=== PATIENT | male | born 1940 ===

== ENCOUNTER 2025-04-14 15:28 | Outpatient (REF) | payer MEDICARE, SELFPAY ==
--- OUTSIDE RECORDS SUMMARY | 2025-04-14 18:52 | XMS_ITS | Clinical Summary ---
Author Organization [facility] Address [address] [place] [address] Care Team Providers Care Chief Nursing Executive Name Role Phone Edward Manuel PA-C Primary Care Provider [phone] Source Comments PLEASE NOTE, if this patient is a minor, it may be UNLAWFUL to discuss sensitive information that is contained in these records (such as FAMILY PLANNING, MENTAL HEALTH or SUBSTANCE ABUSE) with the minor patient's parent or other person without the patient's specific authorization.[facility] Allergies Active Allergy Reactions Criticality Noted Date Comments Penicillin 03/05/2025 Medications blood pressure kit med and lrgIndications:C ontrolled type 2 diabetes mellitus without complication, without long-term current use of insulin ([facility]),Primary hypertension Medium Adult dx htn ISRA[place] 99. 1 Kit 5 Active nitroglycerin (NITROSTAT) 0.[address] 1 Tablet under the tongue every 5 (five) minutes as needed for chest pain. 5 Active apixaban (ELIQUIS) 5 mg tabIndications:H eart disease,Primary hypertension Take 1 Tablet by mouth 2 (two) times daily. 180 Tablet 1 5 Active atorvastatin (LIPITOR) 40 mg tabletIndication s:Heart disease,Primary hypertension Take 1 Tablet by mouth once daily. 90 Tablet 1 5 Active carvediloL (COREG) 3.125 mg tabletIndication s:Heart disease,Primary hypertension Take 1 Tablet by mouth 2 (two) times daily with a meal. 180 Tablet 1 5 Active clopidogreL (PLAVIX) 75 mg tabletIndication s:Heart disease,Primary hypertension Take 1 Tablet by mouth once daily. 90 Tablet 1 5 Active empagliflozin (JARDIANCE) 10 mg tabIndications:H eart disease,Primary hypertension Take 1 Tablet by mouth once daily. 90 Tablet 1 5 Active ranolazine (RANEXA) 500 mg 12 hr tabletIndication s:Heart disease,Primary hypertension Take 1 Tablet by mouth every 12 (twelve) hours. 180 Tablet 1 5 Active sacubitriL-valsa rtan (ENTRESTO) 49-51 mg tabIndications:H eart disease,Primary hypertension Take 1 Tablet by mouth 2 (two) times daily. 180 Tablet 1 5 Active clotrimazole (LOTRIMIN) 1 % creamIndications :Tinea pedis of both feet Apply topically 2 (two) times daily. 15 g 1 5 Active clotrimazole (LOTRIMIN) 1 % creamIndications :Tinea pedis of both feet Apply topically 2 (two) times daily. 15 g 1 5 04/06/20 25 Discontin ued(Reord er (E-Cancel Not Sent)) Active Problems Problem Noted Date Diagnosed Date Congestive heart failure (CMS & HHS-HCC) 025 Primary hypertension 03/05/2025 Encounters Date Type Department Care Team Description 03/05/2025 9:00 AM EDT Office Visit [address] [address] Connor Watt, Jeffery 02/23/2025 Results Follow-Up [address] [address] Edward Manuel PA-C 02/20/2025 9:20 AM EDT Office Visit [address] [address] Edward Manuel PA-C 02/20/2025 Interim Notes [address] [address] Frances Reyes MA from Last 3 Months Immunizations Immunization Administration Dates Next Due TDAP 02/20/2025 ZOSTER VACCINE, RECOMBINANT (SHINGRIX) Family History Medical History Relation Name Comments Heart Disease Brother x1 Breast cancer Daughter 1 x1 Breast cancer Daughter 2 64 Colon Cancer Son x1 Lung Cancer Neg Prostate Cancer Neg Relation Name Status Comments Brother x1 Daughter 1 x1 Alive Daughter 2 64 Maternal Grandmother Son x1 Social History Tobacco Use Types Packs/Day Years Used Date Smoking Tobacco: Former Cigarettes 1 17 Passive Smoke Exposure: Never Smokeless Tobacco: Never Tobacco Cessation:Counseling Given: Yes Alcohol Use Standard Drinks/Week Comments Not Currently 0 (1 standard drink = 0.6 oz pur e alcohol) Social Connections Answer Date Recorded How often do you feel lonely or isolated from th ose around you? 1 02/20/2025 Financial Resource Strain Answer Date R ecorded Hard to pay for: Food 1 02/20/2025 Stress Answer Date Recorded Do you feel these kinds of stress these days? 1 02/20/2025 Food Insecurity Answer Date Recorded Hard to pay for: Food 1 02/20/2025 Transportation Needs Answer Date Record ed Hard to pay for: Transportation 1 02/20/2025 Utilities Answer Date Recorded Hard to pay for: Utilities 1 02/20 Sex and Gender Information Value Date Recorded Sex Assigned at Male 02/20/2025 6:35 AM PDT Legal Sex Male 10:07 AM PDT Gender Identity Male 02/20/2025 6:35 AM PDT Sexual Orientation Straight 02/20/2025 6: 35 AM PDT Last Filed Vital Signs Vital Sign Reading Time Taken Comments Blood Pressure 110/80 03/05/2025 9:22 AM EDT Pulse 61 03/05/2025 9:22 AM EDT Temperature 36.9 C (98.4 F) 03/05/2025 9:22 AM EDT Respiratory Rate 16 03/05/2025 9:22 AM EDT Oxygen Saturation 96% 03/05/2025 9:22 AM EDT Inhaled Oxygen Concentration - - Weight 93.7 kg (206 lb 9.6 oz) 03/05/2025 9:22 A M EDT Height 167.6 cm (5' 6 ) 03/05/2025 9:22 AM EDT Body Mass Index 33.35 03/05/2025 9:22 AM EDT Plan of Treatment Health Maintenance Due Date Last Done Comments Dental Examination 1940 Diabetes Foot Exam 1940 Urine Albumin Creatinine Ratio Screening 1940 Advanced Care Planning 1940 Retinopathy Screening 1953 Medicare Annual Wellness Visit 1958 Imm-Pneumococcal 50+ (1 of 2 - PCV) 1959 Falls Prevention 2005 Imm-RSV (adult) (1 - 1-dose 75+ series) 2015 [id number] (1 - season) 2025 Imm-Influenza (#1) 2025 Imm-Zoster, Recombinant (2 of 2) 04/17/2025 02/21/20 Hemoglobin A1c 08/23/2025 02/20/2025 Lipid Screening 02/20/2026 02/20/2025 Serum Creatinine 02/20/2026 02/20/2025 Tobacco Screening 03/05/2026 03/05/2025 Imm-DTaP/Tdap/Td (2 - Td or Tdap) 02/20/2035 025 Alcohol and Drug Screen Completed 02/20/2025 Depression Annual Screen Completed 02/20/2025 Procedures Procedure Name Priority Date/Time Associated Diagnosis Comments MEDICATIONS SCANNED DOCUMENT 02/25/2025 3:00 AM EDT HEMOGLOBIN GLYCOSYLATED A1C Routine 02/20/2025 11:05 AM EDT Glycosuria Hyperglycemia Controlled type 2 diabetes mellitus without complication, without long-term current use of insulin ([facility]) LIPID PANEL Routine 02/20/2025 11:05 AM EDT Heart disease COMPREHENSIVE METABOLIC PANEL Routine 02/20/2025 11:05 AM EDT Heart disease BLOOD COUNT COMPLETE AUTOMATED Routine 02/20/2025 11:05 AM EDT Heart disease GLUCOSE, BLOOD BY GLUCOSE MONITORING DEVICE (CLIA WAIVED)POCT Routine 02/20/2025 10:36 AM EDT Controlled type 2 diabetes mellitus without complication, without long-term current use of insulin ([facility]) URINE CULTURE W ID & SENS Routine 02/20/2025 10:13 AM EDT RFLX - REFLEXIVE URINE CULTURE Routine 02/20/2025 10:13 AM EDT Dysuria URINALYSIS, COMPLETE W/REFLEX TO CULTURE Routine 02/20/2025 10:13 AM EDT Foul smelling urine Dysuria URINALYSIS, MULTISTIX (POCT) Routine 02/20/2025 10:13 AM EDT Foul smelling urine Dysuria from Last 3 Months Results * MEDICATIONS SCANNED DOCUMENT (02/25/2025 3:00 AM EDT) 02/25/2025 3:00 AM EDT [facility] Provider Default SCAN MEDS OTHER ORDERS Fin al Result * BLOOD COUNT COMPLETE AUTOMATED Routine (02/20/2025 11:05 AM EDT) Pathologist [facility] WHITE BLOOD CELL COUNT 10.0 3.8 - 10.8 Thousand/ uL [facility] RED BLOOD CELL COUNT 5.34 4.20 - 5.80 Million/u L [facility] HEMOGLOBIN 15.9 13.2 - 17.1 g/dL [facility] HEMATOCRIT 49.3 38.5 - 50.0 % [facility] MCV 92.3 80.0 - 100.0 fL [facility] MCH 29.8 27.0 - 33.0 pg [facility] MCHC 32.3 32.0 - 36.0 g/dL [facility] Comment: For adults, a slight decrease in the calculated MCHC value (in the range of 30 to 32 g/dL) is most likely not clinically significant; however, it should be interpreted with caution in correlation with other red cell parameters and the patient's clinical condition. RDW 14.2 11.0 - 15.0 % [facility] PLATELET COUNT 290 140 - 400 Thousand/ uL [facility] MPV 10.3 7.5 - 12.5 fL [facility] Blood Blood / Unknown 02/20/2025 1 1:05 AM EDT 02/20/2025 11:06 AM EDT Narrative [employer] [facility] - 02/23/2025 3:39 AM EDT FASTING:YES SPECIMEN COLLECTED AT PROVIDER OFFICE. us Edward Manuel PA-C LAB - BLOOD DRAW Edited Resu lt - Final Performing Organization Address City/[facility]/ZIP Co de Phone Number [employer] [address] [address], [employer] [address] [address] * (ABNORMAL) HEMOGLOBIN GLYCOSYLATED A1C Routine (02/20/2025 11:05 AM EDT) HEMOGLOBIN A1C 6.4(H) <5.7 % [employer] [facility] Comment: For someone without known diabetes, a hemoglobin A1c value between 5.7% and 6.4% is consistent with prediabetes and should be confirmed with a follow-up test. For someone with known diabetes, a value <7% indicates that their diabetes is well controlled. A1c targets should be individualized based on duration of diabetes, age, comorbid conditions, and other considerations. This assay result is consistent with an increased risk of diabetes. Currently, no consensus exists regarding use of hemoglobin A1c for diagnosis of diabetes for children. Blood Blood / Unknown 02/20/2025 1 1:05 AM EDT 02/20/2025 11:06 AM EDT Narrative [employer] [facility] - 02/23/2025 3:39 AM EDT FASTING:YES SPECIMEN COLLECTED AT PROVIDER OFFICE. us Edward Manuel PA-C LAB - BLOOD DRAW Final Resul t Performing Organization Address [facility]/ZIP Co de Phone Number [employer] [address] [address], [employer] [address] [address] * LIPID PANEL Routine (02/20/2025 11:05 AM EDT) CHOLESTEROL, TOTAL 141 <200 mg/dL [employer] [facility] HDL CHOLESTEROL 56 > OR = 40 mg/dL [employer] [facility] TRIGLYCERIDES 132 <150 mg/dL [facility] LDL-CHOLESTEROL 63 99 mg/dL (calc) [facility] Comment: Reference range: <100 Desirable range <100 mg/dL for primary prevention; <70 mg/dL for patients with CHD or diabetic patients with > or = 2 CHD risk factors. LDL-C is now calculated using the Mariangel calculation, which is a validated novel method providing better accuracy than the Friedewald equation in the estimation of LDL-C. Ruben SS et al. SUSIE. 2013;310(12): 2863-1371 (http://education.Inkerwang/faq/JDW445) CHOL/HDLC RATIO 2.5 <5.0 (calc) [facility] NON-HDL CHOLESTEROL 85 <130 mg/dL (calc) [facility] Comment: For patients with diabetes plus 1 major ASCVD risk factor, treating to a non-HDL-C goal of <100 mg/dL (LDL-C of <70 mg/dL) is considered a therapeutic option. Blood Blood / Unknown 02/20/2025 1 1:05 AM EDT 02/20/2025 11:06 AM EDT Narrative [employer] - 02/23/2025 3:39 AM EDT FASTING:YES SPECIMEN COLLECTED AT PROVIDER OFFICE. us Edward Manuel PA-C LAB - BLOOD DRAW Final Resul t [employer] [address] [place] [id number], [employer] [address] [place] [phone] * COMPREHENSIVE METABOLIC PANEL Routine (02/20/2025 11:05 AM EDT) GLUCOSE 92 65 - 99 mg/dL [facility] Comment: Fasting reference interval UREA NITROGEN (BUN) 24 7 - 25 mg/dL [facility] CREATININE (blood) 1.06 0.70 - 1.22 mg/dL [facility] EGFR 69 > OR = 60 mL/min/1. 73m2 [facility] BUN/CREATININE RATIO SEE NOTE: [facility] Comment: Not Reported: BUN and Creatinine are within reference range. SODIUM 140 135 - 146 mmol/L [facility] POTASSIUM 4.7 3.5 - 5.3 mmol/L [employer] [facility] CHLORIDE 103 98 - 110 mmol/L [employer] [facility] CARBON DIOXIDE 31 20 - 32 mmol/L [employer] [facility] CALCIUM 9.6 8.6 - 10.3 mg/dL [employer] [facility] PROTEIN, TOTAL 6.6 6.1 - 8.1 g/dL [employer] [facility] ALBUMIN 4.2 3.6 - 5.1 g/dL [employer] [facility] GLOBULIN 2.4 1.9 - 3.7 g/dL (calc) [employer] [facility] ALBUMIN/GLOBULI N RATIO 1.8 1.0 - 2.5 (calc) [employer] [facility] BILIRUBIN, TOTAL 0.9 0.2 - 1.2 mg/dL [employer] [facility] ALKALINE PHOSPHATASE 75 35 - 144 U/L [employer] [facility] AST 16 10 - 35 U/L [employer] [facility] ALT 25 9 - 46 U/L [employer] [facility] Blood Blood / Unknown 02/20/2025 1 1:05 AM EDT 02/20/2025 11:06 AM EDT Narrative [employer] [facility] - 02/23/2025 3:39 AM EDT FASTING:YES SPECIMEN COLLECTED AT PROVIDER OFFICE. us Edward Manuel PA-C LAB - BLOOD DRAW Edited Resu lt - Final [employer] [address] [address], [employer] [address] [address] * GLUCOSE, BLOOD BY GLUCOSE MONITORING DEVICE (CLIA WAIVED)POCT Routine (02/20/2025 10:36 AM EDT) GLUCOSE 91 70 - 100 mg/dL [facility] OFF[facility] POCT Capillary Blood Blood / Unknown 10:36 AM EDT us Edward Manuel PA-C LAB - BLOOD DRAW Final Resul t [facility]- BACK OFFICE POCT * (ABNORMAL) URINALYSIS, MULTISTIX (POCT) Urine Routine (02/20/2025 10:13 AM EDT) URINE GLUCOSE 500 (++) NEGATIVE [facility] BACK OFFICE POCT URINE BILIRUBIN NEGATIVE NEGATIVE [facility]- BACK OFFICE POCT URINE KETONES NEGATIVE NEGATIVE [facility]- BACK OFFICE POCT URINE SPECIFIC GRAVITY 1.025 <=1.005 - >=1.030 [facility]- BACK OFFICE POCT URINE BLOOD MODERATE NON-HEMOLYZE D(A) NEGATIVE [facility] BACK OFFICE POCT URINE PH 6.0 5.0 - 8.5 [facility]- BACK OFF[facility] POCT URINE PROTEIN 30 (1+)(A) Negative [facility]- BACK OFF[facility] POCT URINE UROBILINOGEN 0.2 0.2 - 1.0 E.U./dL [facility]- BACK OFF[facility] POCT URINE NITRITE NEGATIVE NEGATIVE [facility]- BACK OFFICE POCT URINE LEUKOCYTES LARGE(A) NEGATIVE [facility]- BACK OFFICE POCT URINE COLOR DARK YELLOW STRAW, YELLOW [facility]- BACK OFFICE POCT ODOR URINE Abnormal(A) Normal [facility]- BACK OFFICE POCT CLARITY OF URINE CLOUDY(A) CLEAR [facility] BACK OFF[facility] POCT Urine Urine specimen / Unknown 02/20/2025 10:13 AM EDT Edward Manuel PA-C LAB URINE AMBULATORY Final R esult Performing Organization Address City/[facility]/ZIP Co de Phone Number [facility]- BACK OFFICE POCT * (ABNORMAL) URINE CULTURE W ID & SENS Routine (02/20/2025 10:13 AM EDT) CULTURE See Note(A) [employer] [facility] Comment: CULTURE, URINE, ROUTINE Micro Number: [id number] Test Status: Final Specimen Source: Urine Specimen Quality: Adequate Result: Greater than 100,000 CFU/mL of Zeenat tropicalis 02/20/2025 10:1 3 AM EDT 02/21/2025 8:02 AM EDT Edward Manuel PA-C LAB - MICROBIOLOGY AMBULATOR Y Final Result [employer] [facility] [address] [address], [employer] [facility] [address] [place] [address] * (ABNORMAL) URINALYSIS, COMPLETE W/REFLEX TO CULTURE Urine Routine (02/20/2025 10:13 AM EDT) COLOR YELLOW YELLOW [facility] APPEARANCE TURBID(A) CLEAR [facility] SPECIFIC GRAVITY 1.021 1.001 - 1.035 [facility] URINE PH 5.5 5.0 - 8.0 [facility] GLUCOSE 1+(A) NEGATIVE [facility] BILIRUBIN NEGATIVE NEGATIVE [facility] KETONES NEGATIVE NEGATIVE [facility] OCCULT BLOOD 2+(A) NEGATIVE [facility] URINE PROTEIN TRACE(A) NEGATIVE [facility] NITRITE NEGATIVE NEGATIVE [facility] LEUKOCYTE ESTERASE 3+(A) NEGATIVE [facility] URINE LEUKOCYTES > OR = 60(A) < OR = 5 [facility] RBC NONE SEEN < OR = 2 [facility] SQUAMOUS EPITHELIAL CELLS 0-5 < OR = 5 /HPF [facility] BACTERIA MANY(A) NONE SEEN [facility] HYALINE CAST NONE SEEN NONE SEEN [facility] YEAST MANY(A) NONE SEEN [facility] SEE NOTE See Below [facility] Comment: This urine was analyzed for the presence of WBC, RBC, bacteria, casts, and other formed elements. Only those elements seen were reported. Urine Urine specimen / Unknown 02/20/2025 10:13 AM EDT 02/21/2025 8:02 AM EDT us Edward Manuel PA-C LAB URINE AMBULATORY Edited Result - Final [facility] [facility] [address] [address], [facility] [address] [place] [address] * [facility] - REFLEXIVE URINE CULTURE Routine (02/20/2025 10:13 AM EDT) REFLEXIVE URINE CULTURE See Below [employer] Comment:CULTURE INDICATED - RESULTS TO FOLLOW 02/20/2025 10:1 3 AM EDT 02/21/2025 8:02 AM EDT Edward Manuel PA-C LAB - MICROBIOLOGY AMBULATOR Y Edited Result - Final [facility] [address] [address], [facility] [address] [place] [address] from Last 3 Months Insurance [facility] Care Teams Chief Nursing Executive Relationship Specialty Start Date End Date Edward Manuel PA-C [address] [place] [address] PCP - General [facility] 02/05/25
== END 2025-04-14 15:29 | disposition home or self-care (01) ==
LOC: HO.SH 15:28
PROVIDERS: Visit Provider Physician Assistant Medical
DX: Z01.118 Encounter for examination of ears and hearing with other abnormal findings (principal); H90.3 Sensorineural hearing loss, bilateral
CPT/HCPCS: 92557

== ENCOUNTER 2025-05-14 15:46 | Outpatient (AMB) | payer MEDICARE, SELFPAY ==
--- NOTE | 2025-05-14 15:51 | A.OFFVIS_ITS ---
Intake Visit Reasons: BPH w/LUTS Intake Note: Patient is present for BPH W/LUTS Urology Medication:FINASTERIDE,TAMSULOSIN Antibiotic Allergy:NONE Blood Thinner:APIXABAN TODAY'S PVR:19ML'S Emergency Room Tech Required: No Emergency Room Tech Services: Emergency Room Tech Present Emergency Room Tech Name: Samra [id number] Allergies No Known Allergies Allergy (Verified 05/14/25 20:50) Medication List - Last Reconciled 05/14/25 by HAILEY Alvarez- apixaban (Eliquis) 5 mg PO BID carvedilol mg PO empagliflozin (Jardiance) 10 mg PO DAILY finasteride 5 mg PO DAILY metformin 1,000 mg PO DAILY ranolazine ER 500 mg PO Q12H sacubitril-valsartan 49-51 mg tabs PO spironolactone 25 mg PO DAILY tamsulosin 0.4 mg PO DAILY HPI Comments Details: Rob is a 84-year-old to be [place]alese-speaking male patient of Dr. Manuel who was accompanied by his daughter at today's office visit. He has a past medical history of diabetes, hypertension, enlarged prostate, and recurrent urinary tract infections. In discussion with the patient and his daughter today he reports having followed up with his PCP for ongoing dysuria he has been experiencing. He reports he was treated for multiple urinary tract infections with his PCP however most recently was admitted to [facility] for over a week and was diagnosed with a urinary tract infections with potential sepsis. He reports he was discharged with a PICC line to his right upper extremity and has been receiving IV antibiotic therapy and is due to complete course this 05/16. He denies ever following up with Urology in the past however he is on Flomax and finasteride. He does report compliance with his medications. In review of medical records that were faxed over from PCP it appears urine culture noted yeast. In office urinalysis results reviewed with the patient today 1+ leukocytes otherwise within normal limits. In assessment of the patient today the penis is uncircumcised. Upon retraction of penile foreskin it does appear patient has balanitis otherwise no lesions or masses noted. No phimosis noted. PVR 19 mL. He currently denies any UTI like symptoms however he does report baseline UTI symptoms are typically dysuria. We did discuss at length potential causes of recurrent urinary tract infections as well as further treatment options and risks and benefits of these treatment options. MARU was offered however deferred. We did discussed obtaining retroperitoneal ultrasound and PSA for further assessment evaluation. He does report a longstanding history of constipation. We did discussed the importance of management and diabetes in relation to lower urinary tract symptoms as well as overall health and well- being. He currently denies urinary urgency, urinary frequency, incontinence, nocturia, hematuria, dysuria, foul smelling urine, changes to urinary stream, flank pain, fever, and or chills. All questions were answered. He otherwise offers no other issues or concerns at this time. Review of Systems Const All systems reviewed & are unremarkable except as noted in HPI and below Physical Exam Const General: cooperative, comfortable, no acute distress, well developed, alert and awake Orientation/consciousness: patient oriented x3 Limitations: language barrier HEENT Head: Yes normal to inspection, Yes normocephalic and Yes atraumatic Ears: hearing grossly normal bilaterally Eyes General: appearance normal, both eyes and all related structures Neck Neck: Yes normal visual inspection and Yes trachea midline Chest Chest palpation & inspection: normal inspection of the chest Resp Effort & Inspection: normal respiratory effort and able to speak in complete sentences Cardio Rate: regular rate GI Inspection: Yes normal to inspection Other: as per HPI General: Yes no CVA tenderness Back/Spine/Pelvis Back: no CVA tenderness Skin General skin exam: no rashes or lesions noted Neuro General: patient oriented x3 Extrem General: Yes normal to inspection Psych Appearance: grossly normal and well kempt Mental Status: mental status grossly normal Speech and movement: Normal speech and movement present and Clear speech present Affect: normal affect Attitude: cooperative Thought process: Normal thought process present Thought content: Normal thought content present Insight: Fair insight present (Psych) Judgement: Fair judgement present (Psych) Office Procedures Post Void Residual Post Residual Void Post Void Residual (PVR): 19 [id number] Void Residual by ultrasound Results AMB Urinalysis, Automated UA Leukoctes 15 Padmini/uL Last Edit by MANJEET Burrows on 05/14/25 16:26 UA Nitrite Negative Last Edit by MANJEET Burrows on 05/14/25 16:26 UA Urobilinogen 0.2 mg/dL Last Edit by MANJEET Burrows on 05/14/25 16:2 6 UA Protein 0 mg/dL Last Edit by MANJEET Burrows on 05/14/25 16:26 UA pH 6.0 Last Edit by MANJEET Burrows on 05/14/25 16:26 UA Blood 0 Meño/uL Last Edit by MANJEET Burrows on 05/14/25 16:26 UA Specific Eudora 1.015 Last Edit by MANJEET Burrows on 05/14/25 16: 26 UA Ketone Negative Last Edit by MANJEET Burrows on 05/14/25 16:26 UA Bilirubin 0 mg/dL Last Edit by MANJEET Burrows on 05/14/25 16: UA Glucose 0 mg/dL Last Edit by MANJEET Burrows on 05/14/25 16:26 Results Reviewed Results Reviewed: Laboratory Last Values Urine pH (Auto) 6.0 05/14/25 16:25 Specific Eudora (Auto) 1.015 05/14/25 16:25 Urine Protein (Auto) 0 mg/dL 05/14/25 16:25 Glucose (UA)(Auto) 0 mg/dL 05/14/25 16:25 Urine Ketones (Auto) Negative 05/14/25 16:25 Urine Blood (Auto) 0 Meño/uL 05/14/25 16:25 Urine Nitrite (Auto) Negative 05/14/25 16:25 Urine Bilirubin (Auto) 0 mg/dL 05/14/25 16:25 Urine Urobilinogen (Auto) 0.2 mg/dL 05/14/25 16:25 Leukocyte Esterase (Auto) 15 Padmini/uL 05/14/25 16:25 Assessment & Plan Assessment & Plan (1) Recurrent UTI: Code(s): N39.0 - Urinary tract infection, site not specified Category: Medical (2) Balanitis: Code(s): N48.1 - Balanitis Category: Medical Plan In office urinalysis results reviewed with the patient today; as noted above. PVR 19 mL. Continue Flomax and finasteride. We discussed signing medical release form to obtain previous hospitalization records for continuity of care. Will obtain retroperitoneal ultrasound for further assessment evaluation. Will obtain PSA and A1c for further assessment evaluation. We discussed balanitis Start clotrimazole/betamethasone as discussed and prescribed. We discussed potential causes of recurrent urinary tract infections as well as further treatment options and risks and benefits of these treatment options. All questions were answered Follow-up in 1-3 months with imaging and labs; or sooner with any issues, concerns, and or questions. Orders: Orders AMB Urinalysis Automated Today Z13.9 - Encounter for screening, unspecified US retroperitoneal comp Today N39.0 - Urinary tract infection, site not specified Prostate Specific Antigen Today N39.0 - Urinary tract infection, site not specified Hemoglobin A1c Today E11.9 - Type 2 diabetes mellitus without complications Medications: New clotrimazole-betamethasone 1-0.05 % Apply thin coat 2 times per day 1 appl topical BID 45 grams 0RF 4 weeks N48.1 - Balanitis Patient Instructions: The patient had an opportunity to ask questions regarding the treatment plan. All questions were answered. Physical exam, labs, and imaging were discussed and reviewed in detail. As well as risks, benefits, and discussion of treatment choices. No major barriers to understanding were identified. The patient expressed understanding and agreement with the above treatment plan. The patient was made aware they should contact our office by phone for worsening of their current condition, the appearance of new symptoms, or with any questions or concerns. Compliance is encouraged with any medications and follow up testing that is ordered. It is a privilege to be allowed the opportunity to participate in? your urological care.? Again, if you have any questions or concerns If you have any questions or concerns please do not hesitate to contact me. The office is [phone]. This note is constructed using voice recognition software. While every effort has been made to ensure accuracy camp maintenance supervisor errors may have been included. Yours sincerely, ELGIN Alvarez Coding Level of Care Code New Pt Level 4 (96410) Diagnoses Recurrent UTI N39.0 Balanitis N48.1 CPT Codes Post Residual Void - PVR CPT Code: 11177-Phxp Void Residual by ultrasound ([id number])
--- OUTSIDE RECORDS SUMMARY | 2025-05-14 19:28 | XMS_ITS | Encounter Summary ---
Author Organization [facility] Address [address] [place] [address] Care Team Providers Care Grade Foreman Name Role Phone Physician, No Pcp Primary Care Provider Unavaila ble Encounter Details Date Type Department Care Team (Late st Contact Info) Description 05/05/2025 Telephone [facility] [address] [facility] [address] [place] [phone] Noy Brandon MD [address], [place] [id number] Social History Tobacco Use Types Packs/Day Years Used Date Smoking Tobacco: Former Cigarettes Q uit: 2010 Smokeless Tobacco: Former Comments:Quit in 1978 Alcohol Use Standard Drinks/Week Comments Not Currently 0 (1 standard drink = 0.6 oz pur e alcohol) Quit in 1999 Housing Instability Answer Date Recorde d Are you worried that in the next 2 months you may not have stable housing? No 05/01/2025 Food Access & Nutrition Answer Date Rec orded Do you have access to a vari ety of food including fruits and vegetables? Yes 05/01/2025 Access to Healthcare Answer Date Record ed Within the last 3 months, ho julisa many times did you visit the emergency department for your medical care? 0 05/01/2025 Health Literacy Answer Date Recorded How often do you need to hav e someone help you when you read instructions, pamphlets, or other written material from your doctor or pharmacy? Patient declined 05/01/2025 Caregiver: How often do you need to have someone help you when you read instructions, pamphlets, or other written material from your doctor or pharmacy? Not on file 025 Financial Risk Answer Date Recorded How hard is it for you to pa y for the very basics like food, housing, medical care, and air conditioning / heating? Patient declined 05/01/2025 Transportation Answer Date Recorded Has the lack of transportati on kept you from meetings, work, or from getting things needed for daily living? Patient declined 05/01/2025 Has the lack of transportati on kept you from medical appointments or from getting medications? Patient declined 05/01/2025 Social Isolation Answer Date Recorded How often do you feel lonely or isolated from those around you? Patient declined 05/01/2025 Food Risk Answer Date Recorded Within the past 12 months we worried whether our food would run out before we got money to buy more. Patient declined 025 Within the past 12 months th e food we bought just didn't last and we didn't have money to get more. Patient declined 09/2024 Dependent Care Answer Date Recorded Do you need help finding or paying for care for your loved ones. For example, children's entertainer or elderly care for an older adult? Patient declined 05/01/2025 Education Answer Date Recorded Do you think completing more education or training, like finishing a GED, going to college, or learning a trade, would be helpful for you? Patient declined 05/01/2025 Employment and Income Answer Date Recor ded During the last four weeks, have you been actively looking for work? Patient declined 05/01/2025 Living Situation Answer Date Recorded What is your living situation? Unrecognized valu e 05/01/2025 Interpersonal Safety Answer Date Record ed Physical Abuse Unrecognized value 05/01/2025 Verbal Abuse Unrecognized value 05/01/2025 Sex and Gender Information Value Date Recorded Sex Assigned at Not on file Legal Sex Male 10:04 AM EDT Gender Identity Not on file Sexual Orientation Choose not to disclose 2024 2:28 PM EDT documented as of this encounter Functional Status * Are you deaf or do you have serious difficulty hearing? Answer Date of Assessment Author No 04/30/2025 11:58 PM EDT Melissa Pierre RN * Are you blind or do you have serious difficulty seeing, even when wearing glasses? Answer Date of Assessment Author No 04/30/2025 11:58 PM EDT Melissa Pierre RN * Do you have serious difficulty walking or climbing stairs? Answer Date of Assessment Author No 04/30/2025 11:58 PM EDT Melissa Pierre RN * Do you have serious difficulty dressing or bathing? Answer Date of Assessment Author No 04/30/2025 11:58 PM EDT Melissa Pierre RN * Because of a physical, mental, or emotional condition, do you have serious difficulty doing errandsalone such as visiting the doctor? Answer Date of Assessment Author No 04/30/2025 11:58 PM EDT Melissa Pierre RN documented as of this encounter Mental Status * Because of a physical, mental, or emotional condition, do you have serious difficulty concentrating, remembering, or making decisions? (5 years old or older) Answer Entry Date Author No 04/30/2025 11:58 PM EDT Melissa Pierre RN documented in this encounter Progress Notes * Yoly Dean - 05/11/2025 2:48 PM EDT Spoke with the patients daughter Verenice and scheduled for 06/05/25 with Kaylie Pan. * Noy Brandon MD - 05/05/2025 9:05 AM EDT Patient seen in consult by Dr. Hodges initially with known history of HFrEF. 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 Follow-up posthospitalization will be with Dr. Hodges or Blue (FYI to them only) 1 month postdischarge. Patient is still in the hospital however getting treated for noncardiac issues. Would keep an eye on his discharge and book 1 month follow-up post. documented in this encounter Plan of Treatment Upcoming Encounters Date Type Department Care Team (Late st Contact Info) Description 06/05/2025 12:40 PM EST Office Visit [facility] - [address] [place] [phone] Kaylie Pan NP [address] [place] [phone] documented as of this encounter Visit Diagnoses Not on filedocumented in this encounter Additional Health Concerns Infection Onset Date Last Indicated Resolved Time Enterovirus 04/30/2025 04/30/2025 Rhinovirus 04/30/2025 04/30/2025 documented as of this encounter Care Teams Grade Foreman Relationship Specialty Start Date End Date Physician, No Pcp PCP - General 04/21/25 documented as of this encounter
--- OUTSIDE RECORDS SUMMARY | 2025-05-14 19:28 | XMS_ITS | Clinical Summary ---
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 Systolic Volume (BP) 155(A) 21 - 61 mL CV PACS IVSD 1.2(A) 0.6 - 1.0 cm CV PACS LVIDD 6.1(A) 4.2 - 5.8 cm CV PACS LVIDS 4.9(A) 2.5 - 4.0 cm CV PACS LVOT Diameter 2.1 cm CV PACS LVOT Mean Joaquin 0.9 m/s CV PACS LVOT Mean Grad 4 mmHg CV PACS LVOT Peak VTI 26.0 cm CV PACS LVOT Peak Joaquin 1.4 m/s CV PACS LVOT Peak Gradient 8 mmHg CV PACS LVPWD 1.2(A) 0.6 - 1.0 cm CV PACS MV E' Tissue Velocity Lateral 8 cm/s CV PACS MV E' Tissue Velocity Septal 4 cm/s CV PACS Ejection Fraction (A2C) 26 % CV PACS Ejection Fraction (A4C) 30 % CV PACS Ejection Fraction (BP) 31 % CV PACS LVOT Area 3.5 cm2 CV PACS LVOT Stroke Volume 90 mL CV PACS Left Atrium Minor [place] 6.5 cm CV PACS Left Atrium Major [place] 5.8 cm CV PACS LA Area Sys (A2C) 28 cm2 CV PACS LA Area Sys (A4C) 26 cm2 CV PACS LA Volume (BP) 101 mL CV PACS RA Area 19.1 cm2 CV PACS RA 2D Volume 55 mL CV PACS AV Mean Gradient 7 mmHg CV PACS Ao VTI 35.2 cm CV PACS AV Peak Joaquin 1.9 m/s CV PACS AV Peak Gradient 14 mmHg CV PACS AV Area Continuity Equation 2.6 cm2 CV PACS AV Area Peak Velocity 2.6 cm2 CV PACS Aortic Sinus Valsalva 3.7 cm CV PACS Ascending Aorta 4.4 cm CV PACS IVC Proximal 1.5 cm CV PACS MV Deceleration Camp 1.9 m/s2 CV PACS E Wave Deceleration Time 331(A) 119 - 242 ms CV PACS MV PHT 97 ms CV PACS MV Peak A Joaquin 1.24 m/s CV PACS MV Peak E Joaquin 0.62 m/s CV PACS MV Area PHT 2.3 cm2 CV PACS PV Acceleration Time 85 ms CV PACS PV Acceleration Time 85 ms CV PACS RV Diastolic Basal Dimension 3.6 2.5 - 4.1 cm CV PACS RV S' 14 cm/s CV PACS TAPSE 27 mm CV PACS LV ESV Index (A4C) 87 mL/m2 CV PACS LV EDV Index (A4C) 124 mL/m2 CV PACS E/E' Ratio Septal 16 CV PACS E/E' Ratio Averaged 12 CV PACS LVOT Stroke Index 46 mL/m2 CV PACS Relative Wall Thickness ratio 0.39 CV PACS LVOT:AV VTI Index 0.74 CV PACS FS 20 % CV PACS LV Mass 2D 323 g CV PACS Ascending Aorta Index 2.26 cm/m2 CV PACS LVOT flow 312 mL/s CV PACS RA 2D Volume Index 28 mL/m2 CV PACS EZEKIEL Index (VTI) 1.31 cm2/m2 CV PACS EZEKIEL Index (Pk Joaquin) 1.33 cm2/m2 CV PACS LVIDD Index 3.13 cm/m2 CV PACS LVIDS Index 2.51 cm/m2 CV PACS AV Velocity Ratio 0.74 CV PACS E/A Ratio 0.5 CV PACS E/E' Ratio Lateral 8 CV PACS LV Systolic Volume Index (BP) 79 mL/m2 CV PACS LV Diastolic Volume Index (BP) 116 mL/m2 CV PACS LA Volume Index (BP) 52 mL/m2 CV PACS LV Mass Index 2D 165 g/m2 CV PACS LV EDV Index (A2C) 91 mL/m2 CV PACS LV ESV Index (A2C) 67 mL/m2 CV PACS BSA 2.02 m2 CV PACS Est. RA Pressure 3 mmHg CV PACS Anatomical Region Laterality Modality Ultrasound Narrative 05/01/2025 11:08 AM EDT Left ventricle cavity is dilated. There is mild hypertrophy. Systolic function is severely decreased with an ejection fraction of 20-25%. Severe global LV hypokinesis is present. There is Grade I (mild) diastolic dysfunction. Right ventricle cavity is normal. Right ventricular systolic function is normal. No hemodynamically significant valvular disease. 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 No prior study for comparison. Left Ventricle Left ventricle cavity is dilated. There is mild hypertrophy. Systolic function is severely decreased with an ejection fraction of 20-25%. Severe global LV hypokinesis is present. There is Grade I (mild) diastolic dysfunction. Right Ventricle Right ventricle cavity appears normal. Systolic function is normal. Left Atrium Left atrium volume index is severely increased. Right Atrium Right atrium cavity is normal. IVC/SVC Inferior vena cava was not well visualized. RA pressures is estimated to be 3 mmHg (IVC diameter <21 mm and decreases >50% during inspiration). Mitral Valve The leaflets are mildly thickened. There is mild annular calcification. There is trace regurgitation. There is no evidence of mitral valve stenosis. Tricuspid Valve The leaflets exhibit normal excursion. There is trace regurgitation. Cannot assess RVSP. Aortic Valve The aortic valve is trileaflet. The leaflets are moderately thickened. The leaflets are mildly calcified. There is mild regurgitation. There is no evidence of aortic valve stenosis. Pulmonic Valve The pulmonic valve was not well visualized. There is trace pulmonic valve regurgitation. There is no evidence of pulmonic valve stenosis. Ascending Aorta The Sinus of Valsalva is (3.7 cm). The ascending aorta is (4.4 cm). Pericardium There is an fat pad. Study Details Overall the study quality was technically difficult. Definity contrast was given to enhance imaging. Study was difficult due to: poor endocardial visualization. us Esha Brothers NP CV ECHO PROCEDURES Final Result * (ABNORMAL) RBC morphology review (05/01/2025 8:24 AM EDT) Rbc Morphology See comment( A) Consistent with indices, Normal for [place] LAB HEMETOLOGY METHOD 05/01/2025 8:58 AM EDT [facility] Comment:RBC: Morphology agre es with CBC Platelet Morphology - WAM See Note(A) Normal LAB HEMETOLOGY METHOD 05/01/2025 8:58 AM EDT [facility] Comment:PLT: Normal Blood Venous blood specimen / Unknown Venipuncture / Unknown 05/01/2025 8:24 AM EDT 05/01/2025 8:28 AM EDT us Esha Brothers NP LAB BLOOD ORDERABLES Final Resul t [facility] [address] [place] [address], [place] [phone] * Light blue tube (05/01/2025 5:15 AM EDT) Extra Tube Hold for add-ons. 05/01/2025 7:01 AM EDT [facility] Comment:Auto resulted. Blood Venous blood specimen / Unknown Venipuncture / Unknown 05/01/2025 5:15 AM EDT 05/01/2025 5:29 AM EDT Maksim Miller MD LAB BLOOD ORDERABLES F inal Result Performing Organization Address [facility]/ZIP Co de Phone Number [facility] [address] [place] [address], [place] [phone] * Activated Partial Thromboplastin Time - STAT (05/01/2025 5:15 AM EDT) aPTT 32.3 24.1 - 39.3 sec LAB COAGULATION METHOD 05/01/2025 5:42 AM EDT [facility] Blood Venous blood specimen / Unknown Venipuncture / Unknown 05/01/2025 5:15 AM EDT 05/01/2025 5:27 AM EDT Nirav Sylvester MD LAB BLOOD ORDERABLES Final R esult [facility] [address] [place] [address], [place] [phone] * (ABNORMAL) Prothrombin Time with INR - STAT (05/01/2025 5:15 AM EDT) Protime 15.4(H) 10.6 - 13.9 sec LAB COAGULATION METHOD 05/01/2025 5:42 AM EDT [facility] INR 1.2 LAB COAGULATION METHOD 05/01/2025 5:42 AM EDT [facility] Blood Venous blood specimen / Unknown Venipuncture / Unknown 05/01/2025 5:15 AM EDT 05/01/2025 5:27 AM EDT us Nirav Sylvester MD LAB BLOOD ORDERABLES Final R esult [facility] [address] [place] [address], [place] [phone] * RI CRITICAL CARE 30-74 MINUTES (05/01/2025 3:35 AM EDT) Nirav Rodriguez MD - 05/01/2025 3:35 AM EDT Nirav Sylvester MD 05/01/2025 4:02 AM Critical Care Performed by: Nirav Sylvester MD Authorized by: Nirav Sylvester MD Critical care provider statement: Critical care time (minutes): 36 Total face to face critical care time (minutes): 20 Critical care time was exclusive of: Separately billable procedures and treating other patients Critical care was necessary to treat or prevent imminent or life-threatening deterioration of the following conditions: Cardiac failure, circulatory failure and shock Critical care was time spent personally by me on the following activities: Development of treatment plan with patient or surrogate, discussions with consultants, evaluation of patient's response to treatment, ordering and review of laboratory studies, ordering and review of radiographic studies, re-evaluation of patient's condition, review of old charts, ordering and performing treatments and interventions and examination of patient Face to face critical care was time spent personally by me on the following activities: Evaluation of patient's response to treatment, development of treatment plan with patient or surrogate, re-evaluation of patient's condition and examination of patient I assumed direction of critical care for this patient from another provider in my specialty: no Care discussed with: admitting provider Comments: NSTEMI requiring heparin drip and discussion with cardiology us Nirav Sylvester MD IN CLINIC/BEDSIDE ORDERABLES Final Result * ECG 12 lead (05/01/2025 1:47 AM EDT) Only the most recent of5 resultswithin the time period is included. Ventricular Rate ECG 75 BPM GEMUSE Atrial Rate 75 BPM GEMUSE P-R Interval 166 ms GEMUSE QRS Duration 170 ms GEMUSE Q-T Interval 476 ms GEMUSE QTc 531 ms GEMUSE P Wave [place] 15 degrees GEMUSE R [place] 15 degrees GEMUSE T [place] 139 degrees GEMUSE ECG Interpretation Normal sinus rhythm Left bundle branch block Abnormal ECG When compared with ECG of 30-APR-2025 21:27, (unconfirmed ) QRS duration has increased Confirmed by MARISELA SCOTT ([id number]) on 05/02/2025 10:58:43 AM GEMUSE 05/01/2025 1:47 AM EDT 05/02/2025 10:58 AM EDT us Nirav Sylvester MD ECG ORDERABLES Final Result Performing Organization Address [facility] Co de Phone Number GEMUSE * (ABNORMAL) Troponin I high sensitivity (05/01/2025 1:47 AM EDT) Only the most recent of6 resultswithin the time period is included. [facility] High Sensitivity Troponin I 119(HH) <=79 ng/L LAB CHEMISTRY METHOD 05/01/2025 3:11 AM EDT [facility] Blood Venous blood specimen / Unknown Venipuncture / Unknown 05/01/2025 1:47 AM EDT 05/01/2025 1:52 AM EDT Narrative [facility] - 05/01/2025 3:11 AM EDT High levels of biotin in samples may falsely decrease hsTroponin values. Use caution when interpreting hsTroponin results in patients taking biotin who exhibit renal impairment (eGFR <60) or in patients taking more than 20 mg/day of biotin. us Nirav Sylvester MD LAB BLOOD ORDERABLES Final R esult Performing Organization Address [facility]/ZIP Co de Phone Number [facility] [address] [place] [address], [place] [phone] * Lactate, with Reflex (04/30/2025 10:56 PM EDT) Pathologist [facility] LACTIC ACID 1.0 0.4 - 2.0 mmol/L LAB CHEMISTRY METHOD 04/30/2025 11:24 PM EDT [facility] Blood Venous blood specimen / Unknown Venipuncture / Unknown 04/30/2025 10:56 PM EDT 04/30/2025 11:00 PM EDT Nirav Sylvester MD LAB BLOOD ORDERABLES Final R esult Performing Organization Address City/[facility]/ZIP Co de Phone Number [facility] [address] [place] [address], [place] [phone] * (ABNORMAL) Blood culture pathogens molecular study (04/30/2025 10:56 PM EDT) [facility] Zeenat tropicalis Detected (A) Not Detected LAB MICROBIOLOGY METHOD 05/02/2025 8:26 AM EDT [facility] Blood Venous blood specimen / Unknown Venipuncture / Unknown 04/30/2025 10:56 PM EDT 04/30/2025 11:00 PM EDT Nirav Sylvester MD LAB MICROBIOLOGY - GENERAL O RDERABLES Final Result Performing Organization Address [facility]/ZIP Co de Phone Number [facility] [address] [place] [address], [place] [phone] * CT Abdomen Pelvis w Contrast (04/30/2025 9:55 PM EDT) Only the most recent of2 resultswithin the time period is included. Anatomical Region Laterality Modality Body Computed Tomogra phy 04/30/2025 10:4 1 PM EDT Impressions 04/30/2025 10:41 PM EDT 1. No acute disease. No CT evidence of acute pancreatitis. 2. Small hiatal hernia. 3. Splenomegaly is again noted. 4. No evidence of a bowel obstruction or free air. No pericolonic inflammation. No evidence of appendicitis. 5. Enlarged prostate gland is again noted. 6. Additional findings are detailed above. This document has been electronically signed by: Rogers Alonso M.D. on 04/30/2025 22:41:36 Narrative 04/30/2025 10:41 PM EDT INDICATION: Abdominal pain, nausea, vomiting, elevated lipase CT ABDOMEN AND PELVIS WITH CONTRAST COMPARISON: 04/21/2025. FINDINGS: CTA chest will be reported separately. Examination is mildly limited due to motion/streak artifact. A few subcentimeter low-attenuation lesions are noted within the liver which are too small to characterize. Liver is otherwise unremarkable. Gallbladder is absent. A small hiatal hernia is noted. The stomach is significantly underdistended which precludes accurate assessment. No CT evidence of acute pancreatitis. A nonspecific 1.9 cm low-attenuation lesion in the spleen is again noted which does not appear to be significantly changed. Spleen is enlarged and measures 15.9 cm on coronal image 88. Adrenal glands are unremarkable. Subcentimeter low-attenuation lesions are noted within the left kidney which are too small to characterize. Both kidneys are otherwise unremarkable. No hydronephrosis or obstructing stone. Small diverticulum is again noted arising from the left lateral aspect of the urinary bladder. Enlarged prostate gland is again noted, estimated to measure approximately 5.9 x 5.3 cm on axial image 158. This does not appear to be significantly changed in size by my measurements compared to the previous examination. Atherosclerotic plaque is noted in the abdominal aorta. No evidence of an abdominal aortic aneurysm or dissection. No evidence of a bowel obstruction. No free air. No pericolonic inflammation. The appendix is visualized, and there is no evidence of acute appendicitis. No lymphadenopathy or loculated fluid collection. Metallic fragments are again noted and and adjacent to the right iliac bone, this has been noted previously. Bone windows demonstrate no acute abnormalities. Degenerative changes are again noted within the hips and visualized spine. Procedure Note Rogers Alonso MD - 04/30/2025 INDICATION: Abdominal pain, nausea, vomiting, elevated lipase CT ABDOMEN AND PELVIS WITH CONTRAST COMPARISON: 04/21/2025. FINDINGS: CTA chest will be reported separately. Examination is mildly limited due to motion/streak artifact. A few subcentimeterlow-attenuation lesions are noted within the liver which are too small to characterize. Liver is otherwise unremarkable. Gallbladder is absent. A small hiatal hernia is noted. The stomach is significantly underdistended which precludes accurate assessment. No CT evidence of acute pancreatitis. A nonspecific 1.9 cm low-attenuation lesion in the spleen is again noted which does not appear to be significantly changed. Spleen is enlargedand measures 15.9 cm on coronal image 88. Adrenal glands are unremarkable. Subcentimeter low-attenuation lesions are noted within the left kidney which are too small to characterize. Both kidneys are otherwise unremarkable. No hydronephrosis or obstructing stone. Small diverticulum is again noted arising from the left lateral aspect of the urinary bladder. Enlarged prostate gland is again noted, estimated to measure approximately 5.9 x 5.3 cm on axial image 158. This does not appear sung significantly changed in size by my measurements compared to theprevious examination. Atherosclerotic plaque is noted in the abdominal aorta. No evidence ofan abdominal aortic aneurysm or dissection. No evidence of a bowel obstruction. No free air. No pericolonic inflammation. The appendix is visualized, and there is no evidence of acute appendicitis. No lymphadenopathy or loculated fluid collection. Metallic fragments are again noted and and adjacent to the right iliac bone, this has beennoted previously. Bone windows demonstrate no acute abnormalities.Degenerative changes are again noted within the hips and visualized spine. IMPRESSION: 1. No acute disease. No CT evidence of acute pancreatitis. 2. Small hiatal hernia. 3. Splenomegaly is again noted. 4. No evidence of a bowel obstruction or free air. No pericolonic inflammation. No evidence of appendicitis. 5. Enlarged prostate gland is again noted. 6. Additional findings are detailed above. This document has been electronically signed by: Rogers Alonso M.D. on 04/30/2025 22:41:36 Chuck Sandhu MD [facility] [place]ED[place] Final Result * CT Angio Chest wo and/or w Contrast (04/30/2025 9:55 PM EDT) Anatomical Region Laterality Modality Body Computed Tomogra phy 04/30/2025 10:5 1 PM EDT Impressions 04/30/2025 10:51 PM EDT 1. Limited exam due to motion/streak artifact. No definite pulmonary embolism. 2. 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 No evidence of a rupture. No definite dissection. Outpatient follow-up is advised. 3. Cardiomegaly. 4. No acute infiltrate or pleural effusion. 5. A 6-7 mm pulmonary nodule is noted in the right lower lobe. A 4 mm left upper lobe pulmonary nodule is noted. This can be followed up according to the revised Fleischner criteria. 6. Additional findings are detailed above. This document has been electronically signed by: Rogers Alonso M.D. on 04/30/2025 22:51:19 Narrative 04/30/2025 10:51 PM EDT INDICATION: Chest pain, dyspnea, hx of prior DVT. Eval for PE vs PNA CTA CHEST WITH CONTRAST AND 3D POST PROCESSING COMPARISON: None provided. FINDINGS: Sagittal and coronal MIP 3D reconstruction images were performed. CT abdomen/pelvis will be reported separately. Examination is limited due to motion/streak artifact. No definitive evidence of a pulmonary embolism. Cardiomegaly is present. Thoracic aorta is partially obscured by motion/streak artifact. There is mild aneurysmal dilatation of the ascending thoracic aorta, estimated to measure 4.1 cm in transverse dimension on axial image 235. Descending thoracic aorta is mildly aneurysmal measuring 3.5 cm in transverse dimension on axial image 319. No evidence of a rupture. No definite dissection. No evidence of a pneumothorax or pneumomediastinum. No focal infiltrate or consolidation. Dependent ground-glass changes are noted in the bilateral lungs. There is minimal atelectatic/fibrotic change in the left lower lung. Noncalcified nodule in the right lower lobe measures 6-7 mm on axial image 273 of series 2. Noncalcified nodule in the left upper lobe measures 4 mm on axial image 132. No pleural effusion. No lymphadenopathy. Small hiatal hernia is present. Bone windows demonstrate no acute abnormalities. There are multilevel degenerative changes within the thoracic spine. Procedure Note Rogers Alonso MD - 04/30/2025 INDICATION: Chest pain, dyspnea, hx of prior DVT. Eval for PE vs PNA CTA CHEST WITH CONTRAST AND 3D POST PROCESSING COMPARISON: None provided. FINDINGS: Sagittal and coronal MIP 3D reconstruction images were performed. CT abdomen/pelvis will be reported separately. Examination is limited due to motion/streak artifact. No definitive evidence of a pulmonary embolism. Cardiomegaly is present. Thoracic aorta is partially obscured by motion/streak artifact. There is mild aneurysmal dilatationof the ascending thoracic aorta, estimated to measure 4.1 cm in transverse dimension on axial image 235. Descending thoracic aorta is mildly aneurysmal measuring 3.5 cm in transverse dimension on axial image 319.No evidence of a rupture. No definite dissection. No evidence of a pneumothorax or pneumomediastinum. No focal infiltrateor consolidation. Dependent ground-glass changes are noted in the bilateral lungs. There is minimal atelectatic/fibrotic change in the left lower lung. Noncalcified nodule in the right lower lobe measures 6-7 mm onaxial image 273 of series 2. Noncalcified nodule in the left upper lobemeasures 4 mm on axial image 132. No pleural effusion. No lymphadenopathy. Small hiatal hernia is present. Bone windows demonstrate no acute abnormalities. There are multilevel degenerative changes within the thoracic spine. IMPRESSION: 1. Limited exam due to motion/streak artifact. No definite pulmonary embolism. 2. 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 No evidence of a rupture. No definite dissection. Outpatient follow-up is advised. 3. Cardiomegaly. 4. No acute infiltrate or pleural effusion. 5. A 6-7 mm pulmonary nodule is noted in the right lower lobe. A 4 mmleft upper lobe pulmonary nodule is noted. This can be followed up accordingto the revised Fleischner criteria. 6. Additional findings are detailed above. This document has been electronically signed by: Rogers Alonso M.D. on 04/30/2025 22:51:19 Chuck Sandhu MD [facility] [place] Final Result * (ABNORMAL) Urinalysis with reflex microscopic (04/30/2025 9:49 PM EDT) Only the most recent of2 resultswithin the time period is included. Specific [place] Urine 1.023 1.003 - 1.030 LAB URINALYSIS - AUTOMATED METHOD 04/30/2025 10:27 PM EDT [facility] pH, Urine 7.5 5.0 - 8.0 pH LAB URINALYSIS - AUTOMATED METHOD 04/30/2025 10:27 PM [facility] Leukocytes, Urine Large(A) Negative LAB URINALYSIS - AUTOMATED METHOD 04/30/2025 10:27 PM [facility] Nitrite, Urine Negative Negative LAB URINALYSIS - AUTOMATED METHOD 04/30/2025 10:27 PM [facility] Protein, Urine Trace <=Trace mg/dL LAB URINALYSIS - AUTOMATED METHOD 04/30/2025 10:27 PM [facility] Glucose, Urine >=1000(A) Negative mg/dL LAB URINALYSIS - AUTOMATED METHOD 04/30/2025 10:27 PM [facility] Ketones, Urine Negative Negative mg/dL LAB URINALYSIS - AUTOMATED METHOD 04/30/2025 10:27 PM [facility] Urobilinogen , Urine 1.0 0.2 - 1.0 mg/dL LAB URINALYSIS - AUTOMATED METHOD 04/30/2025 10:27 PM [facility] Bilirubin, Urine Negative Negative LAB URINALYSIS - AUTOMATED METHOD 04/30/2025 10:27 PM [facility] Blood, Urine Small(A) Negative LAB URINALYSIS - AUTOMATED METHOD 04/30/2025 10:27 PM [facility] RBC, Urine 11.8(H) 0 - 4 /HPF LAB URINALYSIS - AUTOMATED METHOD 04/30/2025 10:27 PM [facility] WBC, Urine 663.5(H) 0 - 4 /HPF LAB URINALYSIS - AUTOMATED METHOD 04/30/2025 10:27 PM [facility] Squamous Epithelial, Urine 21 0 - 60 /LPF LAB URINALYSIS - AUTOMATED METHOD 04/30/2025 10:27 PM [facility] Bacteria, Urine Few(A) Negative /HPF LAB URINALYSIS - AUTOMATED METHOD 04/30/2025 10:27 PM [facility] Hyaline Casts, Urine 8.4(H) 0 - 3 /LPF LAB URINALYSIS - AUTOMATED METHOD 04/30/2025 10:27 PM EDT [facility] Urine Urine specimen obtained by clean catch procedure / Unknown Non-blood Collection / Unknown 04/30/2025 9:49 PM EDT 04/30/2025 10:06 PM EDT Chuck Sandhu MD LAB URINE ORDERABLES Final Resul t [facility] [address] [place] [address], [place] [phone] * XR Chest 2 Views (04/30/2025 8:47 PM EDT) Only the most recent of2 resultswithin the time period is included. Anatomical Region Laterality Modality Body Radiographic Angela ging 04/30/2025 10:5 4 PM EDT Impressions 04/30/2025 10:54 PM EDT 1. No acute disease. 2. Cardiomegaly. This document has been electronically signed by: Rogers Alonso M.D. on 04/30/2025 22:54:54 Narrative 04/30/2025 10:54 PM EDT INDICATION: chest pain CHEST X-RAY FRONTAL AND LATERAL VIEWS COMPARISON: 04/21/2025. FINDINGS: Frontal and lateral views of the chest were performed. Cardiomegaly is present. No acute infiltrate or pleural effusion. No pneumothorax. Kyphotic deformity of the thoracic spine is noted. Procedure Note Rogers Alonso MD - 04/30/2025 INDICATION: chest pain CHEST X-RAY FRONTAL AND LATERAL VIEWS COMPARISON: 04/21/2025. FINDINGS: Frontal and lateral views of the chest were performed. Cardiomegaly is present. No acute infiltrate or pleural effusion. No pneumothorax. Kyphotic deformity of the thoracic spine is noted. IMPRESSION: 1. No acute disease. 2. Cardiomegaly. This document has been electronically signed by: Rogers Alonso M.D. on 04/30/2025 22:54:54 Chuck Sandhu MD IMG XR PROCEDURES Final Result * (ABNORMAL) Respiratory virus panel molecular study (04/30/2025 8:22 PM EDT) Pathologist [facility] Adenovirus Detection by PCR Not Detected Not Detected LAB MICROBIOLOGY METHOD 05/01/2025 6:03 AM EDT [facility] Influenza A PCR Not Detected Not Detected LAB MICROBIOLOGY METHOD 05/01/2025 6:03 AM EDT [facility] Influenza B PCR Not Detected Not Detected LAB MICROBIOLOGY METHOD 05/01/2025 6:03 AM EDT [facility] Coronavirus 229E Not Detected Not Detected LAB MICROBIOLOGY METHOD 05/01/2025 6:03 AM EDT [facility] Coronavirus HKU1 Not Detected Not Detected LAB MICROBIOLOGY METHOD 05/01/2025 6:03 AM EDT [facility] Coronavirus OC43 Not Detected Not Detected LAB MICROBIOLOGY METHOD 05/01/2025 6:03 AM EDT [facility] Coronavirus NL63 Not Detected Not Detected LAB MICROBIOLOGY METHOD 05/01/2025 6:03 AM EDT [facility] Parainfluenza Virus 1 Not Detected Not Detected LAB MICROBIOLOGY METHOD 05/01/2025 6:03 AM EDT [facility] Parainfluenza Virus 2 Not Detected Not Detected LAB MICROBIOLOGY METHOD 05/01/2025 6:03 AM EDT [facility] Parainfluenza Virus 3 Not Detected Not Detected LAB MICROBIOLOGY METHOD 05/01/2025 6:03 AM EDT [facility] Parainfluenza Virus 4 Not Detected Not Detected LAB MICROBIOLOGY METHOD 05/01/2025 6:03 AM EDT [facility] RSV PCR Not Detected Not Detected LAB MICROBIOLOGY METHOD 05/01/2025 6:03 AM EDT [facility] Human Metapneumovirus A and B Not Detected Not Detected LAB MICROBIOLOGY METHOD 05/01/2025 6:03 AM EDT [facility] Rhinovirus/Entero virus Detected(A ) Not Detected LAB MICROBIOLOGY METHOD 05/01/2025 6:03 AM EDT [facility] Bordetella pertussis Not Detected Not Detected LAB MICROBIOLOGY METHOD 05/01/2025 6:03 AM EDT [facility] Bordetella parapertussis Not Detected Not Detected LAB MICROBIOLOGY METHOD 05/01/2025 6:03 AM EDT [facility] Mycoplasma pneumo by PCR Not Detected Not Detected LAB MICROBIOLOGY METHOD 05/01/2025 6:03 AM EDT [facility] Chlamydia pneumoniae Not Detected Not Detected LAB MICROBIOLOGY METHOD 05/01/2025 6:03 AM EDT [facility] SARS COV-2 Not Detected Not Detected LAB MICROBIOLOGY METHOD 05/01/2025 6:03 AM EDT [facility] Swab Both anterior nares / Unknown Non-blood Collection / Unknown 04/30/2025 8:22 PM EDT 04/30/2025 8:27 PM EDT Narrative [facility] - 05/01/2025 6:03 AM EDT Testing was performed using the [employer] Respiratory Pathogen PCR Assay. All results must be correlated with the clinical findings. Results should not be used as the sole basis for diagnosis. False Negative results may occur from the presence of sequence variants in the region targeted by the assay or the presence of inhibitors. Results may be affected by concurrent antiviral/antimicrobial therapy or levels of organisms that are below the limit of detection. us Maksim Miller MD LAB MICROBIOLOGY - GEN ERAL ORDERABLES Final Result [facility] [address] [place] [address], * [id number], RSV, Influenza A and B qualitative RT-PCR (04/30/2025 8:22 PM EDT) Only the most recent of2 resultswithin the time period is included. [facility] Influenza A PCR Not Detected Not Detected LAB MICROBIOLOGY METHOD 04/30/2025 9:12 PM EDT [facility] Influenza B PCR Not Detected Not Detected LAB MICROBIOLOGY METHOD 04/30/2025 9:12 PM EDT [facility] RSV PCR Not Detected Not Detected LAB MICROBIOLOGY METHOD 04/30/2025 9:12 PM EDT [facility] SARS COV-2 Not Detected Not Detected LAB MICROBIOLOGY METHOD 04/30/2025 9:12 PM EDT [facility] Swab Both anterior nares / Unknown Non-blood Collection / Unknown 04/30/2025 8:22 PM EDT 04/30/2025 8:27 PM EDT us Chuck Sandhu MD LAB MICROBIOLOGY - GENERAL ORDER [place] Final Result Performing Organization Address City/[facility]/ZIP Co de Phone Number [facility] [address] [place] [address], [place] [phone] * (ABNORMAL) Lipase (04/30/2025 7:59 PM EDT) Only the most recent of2 resultswithin the time period is included. [facility] Lipase 77(H) 13 - 75 unit/L LAB CHEMISTRY METHOD 04/30/2025 8:55 PM EDT [facility] Blood Venous blood specimen / Unknown Venipuncture / Unknown 04/30/2025 7:59 PM EDT 04/30/2025 8:27 PM EDT us Chuck Sandhu MD LAB BLOOD ORDERABLES Final Resul t Performing Organization Address City/[facility]/ZIP Co de Phone Number [facility] [address] [place] [address], [place] [phone] * (ABNORMAL) Comprehensive metabolic panel (04/30/2025 7:59 PM EDT) [facility] Sodium 139 133 - 145 mmol/L LAB CHEMISTRY METHOD 04/30/2025 8:55 PM [facility] Potassium 4.0 3.5 - 5.5 mmol/L LAB CHEMISTRY METHOD 04/30/2025 8:55 PM [facility] Chloride 105 96 - 110 mmol/L LAB CHEMISTRY METHOD 04/30/2025 8:55 PM [facility] CO2 30 21 - 32 mmol/L LAB CHEMISTRY METHOD 04/30/2025 8:55 PM [facility] Anion Gap 4 3 - 11 LAB CHEMISTRY METHOD 04/30/2025 8:55 PM [facility] Glucose 162(H) 70 - 100 mg/dL LAB CHEMISTRY METHOD 04/30/2025 8:55 PM [facility] BUN 14 5 - 25 mg/dL LAB CHEMISTRY METHOD 04/30/2025 8:55 PM [facility] Creatinine 1.06 0.70 - 1.30 mg/dL LAB CHEMISTRY METHOD 04/30/2025 8:55 PM [facility] eGFR 69 >=60 mL/min/1. 73m2 LAB CHEMISTRY METHOD 04/30/2025 8:55 PM [facility] Comment:Calculation based on the Chronic Kidney Disease Epidemiology Collaboration (CKD-EPI) equation refit without adjustment for race. BUN/Creatinine Ratio 13.2 LAB CHEMISTRY METHOD 04/30/2025 8:55 PM [facility] Calcium 8.7 8.5 - 10.5 mg/dL LAB CHEMISTRY METHOD 04/30/2025 8:55 PM [facility] AST (SGOT) 23 10 - 42 unit/L LAB CHEMISTRY METHOD 04/30/2025 8:55 PM [facility] ALT (SGPT) 41 10 - 60 unit/L LAB CHEMISTRY METHOD 04/30/2025 8:55 PM [facility] Alkaline Phosphatase 121 42 - 121 unit/L LAB CHEMISTRY METHOD 04/30/2025 8:55 PM EDT [facility] Total Protein 6.4 6.0 - 8.0 g/dL LAB CHEMISTRY METHOD 04/30/2025 8:55 PM EDT [facility] Albumin 3.3 3.2 - 5.0 g/dL LAB CHEMISTRY METHOD 04/30/2025 8:55 PM EDT [facility] Total Bilirubin 0.7 0.0 - 1.4 mg/dL LAB CHEMISTRY METHOD 04/30/2025 8:55 PM EDT [facility] Blood Venous blood specimen / Unknown Venipuncture / Unknown 04/30/2025 7:59 PM EDT 04/30/2025 8:27 PM EDT Chuck Sandhu MD LAB BLOOD ORDERABLES Final Resul t [facility] [address] [place] [address], * (ABNORMAL) Complete blood count (04/22/2025 6:09 AM EDT) WBC 8.3 4.8 - 10.8 K/mcL LAB HEMETOLOGY METHOD 04/22/2025 7:03 AM [facility] RBC 4.70 4.50 - 5.50 M/mcL LAB HEMETOLOGY METHOD 04/22/2025 7:[facility] Hemoglobin 13.5 13.5 - 17.5 g/dL LAB HEMETOLOGY METHOD 04/22/2025 7:03 AM [facility] Hematocrit 41.0(L) 42.0 - 54.0 % LAB HEMETOLOGY METHOD 04/22/2025 7:03 AM [facility] MCV 87.4 79.0 - 98.0 FL LAB HEMETOLOGY METHOD 04/22/2025 7:03 AM [facility] MCH 28.8 27.0 - 32.0 pcg LAB HEMETOLOGY METHOD 04/22/2025 7:03 AM EDT [facility] MCHC 32.9 32.0 - 37.0 g/dL LAB HEMETOLOGY METHOD 04/22/2025 7:03 AM EDT [facility] RDW 14.5 11.0 - 15.0 % LAB HEMETOLOGY METHOD 04/22/2025 7:03 AM EDT [facility] Platelets 178 130 - 400 K/mcL LAB HEMETOLOGY METHOD 04/22/2025 7:03 AM EDT [facility] MPV 10.8 7.0 - 11.0 FL LAB HEMETOLOGY METHOD 04/22/2025 7:03 AM EDT [facility] NRBC 0.0 <1.0 % LAB HEMETOLOGY METHOD 04/22/2025 7:03 AM EDT [facility] NRBC Absolute 0.00 <0.10 K/mcL LAB HEMETOLOGY METHOD 04/22/2025 7:03 AM T [facility] Blood Venous blood specimen / Unknown Venipuncture / Unknown 04/22/2025 6:09 AM EDT 04/22/2025 6:26 AM EDT us Eliana Davis MD LAB BLOOD ORDERABLES Final Res ult [facility] [address] [place] [address], * Hemoglobin A1c (04/22/2025 6:09 AM EDT) Hemoglobin A1C 6.3 <6.5 % LAB CHEMISTRY METHOD 04/22/2025 12:17 PM EDT [facility] Mean Bld Glu Estim. 134 mg/dL LAB CHEMISTRY METHOD 04/22/2025 12:17 PM EDT [facility] Blood Venous blood specimen / Unknown Venipuncture / Unknown 04/22/2025 6:09 AM EDT 04/22/2025 6:26 AM EDT Yue LORENZO LAB BLOOD ORDERABLES Final Resu lt [facility] [address] [place] [address], * CT Head wo Contrast (04/21/2025 2:16 PM EDT) Anatomical Region Laterality Modality Head and Neck Computed Tomogra phy 04/21/2025 2:22 PM EDT Impressions 04/21/2025 2:25 PM EDT Impression: 1. No acute hemorrhage or intracranial mass effect. 2. Moderate, nonspecific deep white matter changes compatible with chronic microvascular ischemia in a patient of this age. Teleaayush LORENZO ([id number]) -------- FINAL REPORT -------- Dictated By: Reema Moreira Dictated Date: 04/21/2025 14:22 ET Assigned Physician: Reema Moreira Reviewed and Electronically Signed By: Reema Moreira Signed Date: 04/21/2025 14:25 ET Workstation ID: [id number] Transcribed By: Self Edit Transcribed Date: 04/21/2025 14:22 ET Narrative 04/21/2025 2:25 PM EDT History: Altered mental status. Comparison: No comparison imaging at this institution. Technique: Contiguous axial images were obtained at 2.5 mm intervals through the posterior fossa and at 5 mm intervals through the remainder of the brain without intravenous contrast. DLP: 1873.05 mGy/cm [employer] Iterative reconstruction technique Findings: Moderate generalized cerebral volume loss is probably within normal limits for the stated age. Pierson-white differentiation is maintained. Patchy deep white matter hypodensity is seen bilaterally, unaccompanied by mass effect or hemorrhage. No abnormal intra- or extra-axial masses or fluid collections are seen. There is no evidence of acute intracranial hemorrhage. There is mild mucoperiosteal thickening within the partially imaged paranasal sinuses, consistent with sinusitis. The mastoid air cells are clear. The calvarium is intact. Procedure Note Reema Moreira MD - 04/21/2025 History: Altered mental status. Comparison: No comparison imaging at this institution. Technique: Contiguous axial images were obtained at 2.5 mm intervalsthrough the posterior fossa and at 5 mm intervals through the remainder ofthe brain without intravenous contrast. DLP: 1873.05 mGy/cm [employer] Iterative reconstruction technique Findings: Moderate generalized cerebral volume loss is probably within normal limitsfor the stated age. Pierson-white differentiation is maintained. Patchy deepwhite matter hypodensity is seen bilaterally, unaccompanied by mass effector hemorrhage. No abnormal intra- or extra-axial masses or fluid collections are seen.There is no evidence of acute intracranial hemorrhage. There is mild mucoperiosteal thickening within the partially imagedparanasal sinuses, consistent with sinusitis. The mastoid air cells areclear. The calvarium is intact. IMPRESSION: Impression: 1. No acute hemorrhage or intracranial mass effect. 2. Moderate, nonspecific deep white matter changes compatible with chronicmicrovascular ischemia in a patient of this age. Telerad MAURA ([id number]) -------- FINAL REPORT -------- Dictated By: Reema Moreira Dictated Date: 04/21/2025 14:22 ET Assigned Physician: Reema Moreira Reviewed and Electronically Signed By: Reema Moreira Signed Date: 04/21/2025 14:25 ET Workstation ID: [id number] Transcribed By: Self Edit Transcribed Date: 04/21/2025 14:22 ET us Enrique Liz MD [facility] [place] Final Result * (ABNORMAL) B-Type Natriuretic Peptide (BNP) (04/21/2025 12:27 PM EDT) BNP 105(H) <=100 pcg/mL LAB CHEMISTRY METHOD 04/21/2025 1:09 PM EDT [facility] Blood Venous blood specimen / Unknown Venipuncture / Unknown 04/21/2025 12:27 PM EDT 04/21/2025 12:32 PM EDT us Enrique Liz MD LAB BLOOD ORDERABLES Final Resul t Performing Organization Address City/[facility]/ZIP Co de Phone Number [facility] [address] [place] [address], [place] [phone] * Lactate (04/21/2025 12:27 PM EDT) [facility] Signature Lactate 1.2 0.4 - 2.0 mmol/L LAB CHEMISTRY METHOD 04/21/2025 1:02 PM EDT [facility] Blood Venous blood specimen / Unknown Venipuncture / Unknown 04/21/2025 12:27 PM EDT 04/21/2025 12:32 PM EDT us Enrique Liz MD LAB BLOOD ORDERABLES Final Resul t Performing Organization Address [facility]/ZIP Co de Phone Number [facility] [address] [place] [address], [place] [phone] from Last 3 Months Additional Health Concerns Infection Onset Date Last Indicated Enterovirus 04/30/2025 04/30/2025 Rhinovirus 04/30/2025 04/30/2025 Insurance MEDICAID - [place] [employer] [address] [address] Advance Directives * Full Code - Confirmed (Latest Code Status on File) Date Activated Date Inactivated Comments 05/01/2025 7:18 AM 05/06/2025 3:[address] atus was ascertained in the following way: Code status discussion: discussion with patient To update the patient's code status, place a code status order. Do not modify or discontinue any currently active code status orders. * Full Code - Default Date Activated Date Inactivated Comments 05/01/2025 3:25 AM 05/01/2025 7:18 AM This is orde r is used when code status has not been discussed with the patient, or code status is otherwise unknown/unconfirmed To update the patient's code status, place a code status order. Do not modify or discontinue any currently active code status orders. * Full Code - Confirmed Date Activated Date Inactivated Comments 04/21/2025 4:50 PM 04/22/2025 8:[address] atus was ascertained in the following way: Code status discussion: discussion with healthcare insurance sales representative, patient's daughter at bedside. To update the patient's code status, place a code status order. Do not modify or discontinue any currently active code status orders. * Full Code - Default Date Activated Date Inactivated Comments 04/21/2025 3:41 PM 04/21/2025 4:50 PM This is orde r is used when code status has not been discussed with the patient, or code status is otherwise unknown/unconfirmed To update the patient's code status, place a code status order. Do not modify or discontinue any currently active code status orders. Care Teams Riveting Machine Operator Tape Control Relationship Specialty Start Date End Date Physician, No Pcp PCP - General 04/21/25
== END 2025-05-14 16:34 | disposition home or self-care (01) ==
PROVIDERS: Visit Provider Nurse Practitioner Family
DX: N39.0 Urinary tract infection, site not specified (principal); N48.1 Balanitis; Z13.9 Encounter for screening, unspecified
CPT/HCPCS: 99204

== ENCOUNTER → 2025-05-14 15:46 | Outpatient (BNVA) | payer MEDICARE, SELFPAY | PROVIDERS: Visit Provider Nurse Practitioner Family | DX: N39.0 Urinary tract infection, site not specified (principal); N48.1 Balanitis; Z13.9 Encounter for screening, unspecified | CPT/HCPCS: 51798; 81003; 99202 ==